=== PATIENT | male | born 1970 | race African-American/Black ===

== ENCOUNTER 2018-12-15 09:38 | Emergency (ER) | payer MEDICAID ==
[~2018-12-15] VITALS: Ht 182.9 cm; Wt 65.0 kg
[2018-12-15] MEDS ORDERED: LEVETIRACETAM 1000MG/100ML 100 ML IV ONE (12:00)
[2018-12-15 12:31] LABS: BASOPHILS % 0.6 % (0.0-2.0); EOSINOPHILS % 0.8 % (0.0-5.0); HEMATOCRIT. 36.6 % (42.0-52.0); HEMOGLOBIN. 12.4 g/dL (14.0-18.0); LYMPHOCYTES % 18.5 % (20.0-50.0); MEAN CORPUSCULAR HEMOGLOBIN 31.6 pg (28.0-32.0); MEAN PLATELET VOLUME 7.7 fl (7.4-10.4); MONOCYTES % 3.6 % (2.0-8.0); NEUTROPHILS % 76.5 % (40.0-76.0); PLATELET 292 x1000/uL (130-400); RED BLOOD CELL COUNT 3.94 mill/uL (4.7-6.1); RED CELL DISTRIBUTION WIDTH 14.2 % (11.6-14.6)
[2018-12-15 12:33] LABS: CHLORIDE 103 mEq/L (98-107)
[2018-12-15 12:34] LABS: CLARITY URINE CLOUDY (CLEAR); COLOR URINE DARK YELLOW (YELLOW); KETONES URINE 1+ (NEGATIVE); LEUKOCYTE ESTERASE URINE NEGATIVE (NEGATIVE); NITRITE URINE NEGATIVE (NEGATIVE); OCCULT BLOOD URINE NEGATIVE (NEGATIVE); PROTEIN URINE TRACE (NEGATIVE); SPECIFIC GRAVITY URINE 1.029 (1.005-1.030)
[2018-12-15 12:37] LABS: ETHANOL BLOOD < 10 mg/dL
[2018-12-15 13:19] LABS: *AMPHETAMINES SCREEN URINE NEGATIVE (NEGATIVE); CANNABINOID URINE SCREEN NEGATIVE (NEGATIVE)
[2018-12-15 13:20] LABS: *BARBITURATES SCREEN URINE NEGATIVE (NEGATIVE)
[2018-12-15 13:23] LABS: *COCAINE SCREEN URINE NEGATIVE (NEGATIVE); METHADONE URINE SCREEN NEGATIVE (NEGATIVE)
[2018-12-15 13:25] LABS: OPIATES URINE SCREEN NEGATIVE (NEGATIVE)
[2018-12-15 13:27] LABS: *BENZODIAZEPINES SCREEN URINE NEGATIVE (NEGATIVE); PHENCYCLIDINE URINE SCREEN NEGATIVE (NEGATIVE)
[2018-12-15 13:46] VITALS: BP 119/63
== END 2018-12-15 14:08 | disposition home or self-care (01) ==
LOC: ER 09:38
DX: G40.909 Epilepsy, unspecified, not intractable, without status epilepticus (principal)
CPT/HCPCS: 36415; 80053; 80305; 80320; 81003; 85025; 93005; 96365; 99284; J1953; G0480

== ENCOUNTER 2020-02-17 17:58 | Emergency (ER) | payer MEDICAID ==
[~2020-02-17] VITALS: Ht 180.3 cm; Wt 66.0 kg
[2020-02-17 18:04] VITALS: BP 133/66
[2020-02-17] MEDS ORDERED: BACITRACIN ZINC OINT UDPKT TOP ONE (18:30)
[2020-02-17] MEDS ORDERED: TETANUS, DIPHTHERIA, PERTUSSIS VAC/PF 0.5ML (>7YR OLD) IM ONE (18:30)
[2020-02-17] MEDS ORDERED: LIDOCAINE 1%/EPI 1:100,000 10 ML VIAL IJ ONE (18:30)
[2020-02-17] MEDS ORDERED: ACETAMINOPHEN 325MG TABLET PO ONE (18:45)
== END 2020-02-17 20:18 | disposition home or self-care (01) ==
LOC: ER 17:58
DX: S01.81XA Laceration without foreign body of other part of head, initial encounter (principal); R56.9 Unspecified convulsions; Y08.89XA Assault by other specified means, initial encounter; Y93.9 Activity, unspecified; Y92.9 Unspecified place or not applicable
CPT/HCPCS: 12013; 70486; 90471; 90715; 99284; J3490

== ENCOUNTER 2020-03-02 14:00 | Emergency (ER) | payer MEDICAID ==
[~2020-03-02] VITALS: Ht 180.3 cm; Wt 68.0 kg
[2020-03-02 14:14] VITALS: BP 119/65
[2020-03-19] MEDS ORDERED: APIX5TAB MT (18:34)
[2020-03-19] MEDS ORDERED: PHEN100C4 MT (18:34)
[2020-03-19] MEDS ORDERED: KEPP500 MT (18:34)
== END 2020-03-02 15:29 | disposition home or self-care (01) ==
LOC: ER 14:36
DX: Z48.02 Encounter for removal of sutures (principal); R56.9 Unspecified convulsions
CPT/HCPCS: 99281; Z7610

== ENCOUNTER 2020-09-06 08:57 | Emergency (ER) | payer MEDICAID ==
[~2020-09-06] VITALS: Ht 172.7 cm; Wt 72.0 kg
[~2020-09-06 08:57] MED LIST: APIX5TAB MT; KEPP500 MT; PHEN100C4 MT
[2020-09-06] MEDS ORDERED: LEVETIRACETAM 1000MG PREMIX 100 ML IV ONE (09:15)
[2020-09-06 09:29] LABS: BASOPHILS % 0.5 % (0.0-2.0); EOSINOPHILS % 1.1 % (0.0-5.0); HEMATOCRIT. 40.8 % (42.0-52.0); HEMOGLOBIN. 13.7 g/dL (14.0-18.0); LYMPHOCYTES % 14.5 % (20.0-50.0); MEAN CORPUSCULAR HEMOGLOBIN 31.8 pg (28.0-32.0); MEAN CORPUSCULAR VOLUME 94.8 fL (80.0-94.0); MEAN PLATELET VOLUME 7.7 fl (7.4-10.4); MONOCYTES % 5.9 % (2.0-8.0); PLATELET 163 x1000/uL (130-400); RED CELL DISTRIBUTION WIDTH 13.4 % (11.6-14.6)
[2020-09-06 09:37] LABS: CHLORIDE 106 mEq/L (98-107)
[2020-09-06 09:41] LABS: ETHANOL BLOOD < 10 mg/dL
[2020-09-06 09:50] LABS: CARBAMAZEPINE < 0.5 ug/mL (4-12); PHENOBARBITAL < 2.1 ug/mL (15.0-40.0); VALPROIC ACID < 3.0 ug/mL (50-100)
[2020-09-06 10:51] LABS: CLARITY URINE CLEAR (CLEAR); COLOR URINE YELLOW (YELLOW); KETONES URINE NEGATIVE (NEGATIVE); LEUKOCYTE ESTERASE URINE NEGATIVE (NEGATIVE); NITRITE URINE NEGATIVE (NEGATIVE); OCCULT BLOOD URINE NEGATIVE (NEGATIVE); PH URINE 5.5 (4.5-8.0); PROTEIN URINE 1+ (NEGATIVE); SPECIFIC GRAVITY URINE 1.017 (1.005-1.030); UROBILINOGEN URINE 0.2 E.U./dL (0.2-1.0)
[2020-09-06 11:07] LABS: *AMPHETAMINES SCREEN URINE NEGATIVE (NEGATIVE); *BARBITURATES SCREEN URINE NEGATIVE (NEGATIVE); *BENZODIAZEPINES SCREEN URINE NEGATIVE (NEGATIVE); *COCAINE SCREEN URINE NEGATIVE (NEGATIVE); CANNABINOID URINE SCREEN NEGATIVE (NEGATIVE); METHADONE URINE SCREEN NEGATIVE (NEGATIVE); OPIATES URINE SCREEN NEGATIVE (NEGATIVE); PHENCYCLIDINE URINE SCREEN NEGATIVE (NEGATIVE)
[2020-09-06 11:20] VITALS: BP 138/70
[2020-09-06] MEDS ORDERED: PHEN100C4 PO (11:29)
== END 2020-09-06 12:10 | disposition home or self-care (01) ==
LOC: ER 08:57
DX: S00.81XA Abrasion of other part of head, initial encounter (principal); R56.9 Unspecified convulsions; Z98.890 Other specified postprocedural states; X58.XXXA Exposure to other specified factors, initial encounter; Y93.89 Activity, other specified; Y92.89 Other specified places as the place of occurrence of the external cause; Y99.8 Other external cause status
CPT/HCPCS: 36415; 80053; 80156; 80165; 80184; 80185; 80305; 80320; 81003; 82962; 85025; 96365; 99284; J1953; G0480

== ENCOUNTER 2020-10-03 10:27 | Inpatient (IN) | payer MEDICAID ==
[~2020-10-03] VITALS: Ht 180.3 cm; Wt 67.6 kg
[~2020-10-03 10:27] MED LIST changes: +PHEN100C4 PO
[2020-10-03 11:14] LABS: BASOPHILS % 1.3 % (0.0-2.0); EOSINOPHILS % 7.2 % (0.0-5.0); HEMATOCRIT. 40.3 % (42.0-52.0); HEMOGLOBIN. 13.9 g/dL (14.0-18.0); LYMPHOCYTES % 40.4 % (20.0-50.0); MEAN CORPUSCULAR HEMOGLOBIN 32.2 pg (28.0-32.0); MEAN CORPUSCULAR VOLUME 93.2 fL (80.0-94.0); MEAN PLATELET VOLUME 8.3 fl (7.4-10.4); MONOCYTES % 8.7 % (2.0-8.0); NEUTROPHILS % 42.4 % (40.0-76.0); PLATELET 223 x1000/uL (130-400); RED BLOOD CELL COUNT 4.32 mill/uL (4.7-6.1); RED CELL DISTRIBUTION WIDTH 13.5 % (11.6-14.6)
[2020-10-03 11:23] LABS: CHLORIDE 102 mEq/L (98-107)
[2020-10-03 11:27] LABS: ETHANOL BLOOD < 10 mg/dL
[2020-10-03 12:48] LABS: CLARITY URINE CLEAR (CLEAR); COLOR URINE YELLOW (YELLOW); KETONES URINE NEGATIVE (NEGATIVE); LEUKOCYTE ESTERASE URINE NEGATIVE (NEGATIVE); NITRITE URINE NEGATIVE (NEGATIVE); OCCULT BLOOD URINE NEGATIVE (NEGATIVE); PH URINE 6.5 (4.5-8.0); PROTEIN URINE NEGATIVE (NEGATIVE); SPECIFIC GRAVITY URINE 1.022 (1.005-1.030)
[2020-10-03 13:10] LABS: *BARBITURATES SCREEN URINE NEGATIVE (NEGATIVE); *BENZODIAZEPINES SCREEN URINE NEGATIVE (NEGATIVE); *COCAINE SCREEN URINE NEGATIVE (NEGATIVE)
[2020-10-03 13:11] LABS: *AMPHETAMINES SCREEN URINE NEGATIVE (NEGATIVE)
[2020-10-03 13:12] LABS: OPIATES URINE SCREEN NEGATIVE (NEGATIVE)
[2020-10-03] MEDS ORDERED: SODIUM CHLORIDE 0.9% 1,000 ML IV ONE (13:15)
[2020-10-03 13:17] LABS: CANNABINOID URINE SCREEN NEGATIVE (NEGATIVE)
[2020-10-03 13:20] LABS: METHADONE URINE SCREEN NEGATIVE (NEGATIVE)
[2020-10-03 13:22] LABS: PHENCYCLIDINE URINE SCREEN NEGATIVE (NEGATIVE)
[2020-10-03 20:00] VITALS: BP 114/54
[2020-10-03] MEDS ORDERED: LORAZEPAM 2MG/ML CPJ IV PRN (20:45)
[2020-10-03 21:06] VITALS: BP 114/54
[2020-10-03] MEDS: LEVETIRACETAM 500MG TABLET PO SCH (22:19)
[2020-10-03] MEDS ORDERED: PHEN100C12 PO ×2 (22:55)
[2020-10-04] VITALS (7 sets, daily range): BP systolic 102–123; BP diastolic 49–74
[2020-10-04 06:14] LABS: CHLORIDE 107 mEq/L (98-107)
[2020-10-04] MEDS: LEVETIRACETAM 500MG TABLET PO SCH ×2 (09:14→21:02)
[2020-10-05 04:00] VITALS: BP 105/57
[2020-10-05 06:00] VITALS: BP 112/67
[2020-10-05 08:00] VITALS: BP 121/55
[2020-10-05] MEDS: LEVETIRACETAM 500MG TABLET PO SCH ×2 (08:44→20:10)
[2020-10-05 12:00] VITALS: BP 123/68
[2020-10-05] MEDS ORDERED: FAMOTIDINE 20MG TABLET PO SCH (12:15)
[2020-10-05] MEDS: DOCUSATE SODIUM 100MG CAPSULE PO SCH ×2 (12:16→20:10)
[2020-10-05 16:00] VITALS: BP 103/73
[2020-10-05 20:01] VITALS: BP 112/74
[2020-10-06] VITALS: BP 105/55
[2020-10-06 04:04] VITALS: BP 106/62
[2020-10-06 08:00] VITALS: BP 123/68
[2020-10-06] MEDS: DOCUSATE SODIUM 100MG CAPSULE PO SCH ×2 (09:06→16:42)
[2020-10-06] MEDS: LEVETIRACETAM 500MG TABLET PO SCH ×2 (09:06→20:44)
[2020-10-06 12:00] VITALS: BP_SYST 119; BP_SYST 123; BP_DIAS 64; BP_DIAS 68
[2020-10-06 16:00] VITALS: BP_SYST 112; BP_SYST 123; BP_DIAS 64; BP_DIAS 68
[2020-10-06 20:00] VITALS: BP 119/76
[2020-10-07] VITALS: BP 102/56
[2020-10-07 04:00] VITALS: BP 112/65
[2020-10-07] MEDS: DOCUSATE SODIUM 100MG CAPSULE PO SCH ×2 (08:06→08:12)
[2020-10-07] MEDS: LEVETIRACETAM 500MG TABLET PO SCH (08:06)
[2020-10-07] MEDS ORDERED: KEPP500 PO (10:55)
[2020-10-07 13:22] VITALS: BP 107/62
== END 2020-10-07 14:10 | disposition home or self-care (01) | DRG 53 ==
LOC: ER 10:27 → 8WST 13:40 → EDBEDREQ 13:45 → EDBEDREQTM 13:45 → ENRESERV 16:39
PROVIDERS: ADMIT Internal Medicine; ATTEND Internal Medicine
PROC: 4A10X4Z Monitoring of Central Nervous Electrical Activity, External Approach (ICD-10-PCS; principal; 2020-10-05)
DX: G40.409 Other generalized epilepsy and epileptic syndromes, not intractable, without status epilepticus (principal); D72.819 Decreased white blood cell count, unspecified; F79 Unspecified intellectual disabilities; T42.0X5A Adverse effect of hydantoin derivatives, initial encounter; Y92.89 Other specified places as the place of occurrence of the external cause
CPT/HCPCS: 36415; 71045; 80053; 80185; 80305; 80320; 81003; 85025; 95816; 97162; 99291; J7030; G0480